=== PATIENT | male | born 1990 | race Caucasian/White ===

== ENCOUNTER → 2019-03-12 | Outpatient (CLI) | payer BC ==
[2019-03-15 14:06] LABS: NEISSERIA GONORRHOEAE, NAA Negative (Negative)
[2019-03-16 09:17] LABS: CHLAMYDIA TRACHOMATIS, NAA Positive (Negative)
== END | disposition home or self-care (01) ==
LOC: LAB EV 18:51 → LAB SHORT 18:51
PROVIDERS: Family Medicine
DX: Z20.9 Contact with and (suspected) exposure to unspecified communicable disease (principal)
CPT/HCPCS: 87491; 87591